=== PATIENT | female | born 1955 | race Caucasian/White ===

== ENCOUNTER → 2016-08-18 | Outpatient (CLI) | payer OTHER ==
--- NOTE | 2016-08-18 15:38 | MA ---
Diagnostic Digital Mammogram Right Breast With iCAD Analysis Reason for examination: Evaluate possible asymmetry versus overlap of normal glandular elements noted in the upper inner right breast on the screening study July 29, 2016. Technique: Oblique and craniocaudal spot compression views are obtained. Also, a true lateral is perf ormed. The examination is processed by the iCAD computer-aided detection system. Comparison is made to older studies dating back to August 2008. Findings: The abnormality does not persist on diagnostic evaluation and it was probably related to dorantes perimposition of normal glandular elements on the screening study. The appearance of the right breas t on diagnostic assessment is unchanged compared to the older studies. Impression: Negative diagnostic mammography. BI-RADS: 1. Recommendation: Resume routine mammographic screening in one year as long as physical examination is negative. A verbal report was given to the patient. [facility] with send a result letter.
== END ==
LOC: FIMAGING 14:54
PROVIDERS: ATTEND Obstetrics & Gynecology
DX: Z12.39 Encounter for other screening for malignant neoplasm of breast (principal); R92.2 Inconclusive mammogram
CPT/HCPCS: G0206

== ENCOUNTER → 2016-08-30 | Outpatient (CLI) | payer OTHER ==
--- NOTE | 2016-08-30 13:02 | NM ---
Gastric Emptying Study Clinical History: 60-year-old female with early satiety, belching, and a negative EGD and negative c olonoscopy. ICD 10 Diagnostic Code: R68.81. Comparison Study: None available. Technique: 2.4 mCi of technetium 99m sulfur colloid was mixed with 1 egg, and the egg and toast an d orange juice were ingested. Dynamic anterior imaging was performed of the abdomen, and % retention rates were calculated. Findings: Time (Minutes): Retention % 60 70 120 7 180 2 240 3 The T-1/2 time is 77 minutes (normal is less than 90 minutes). *Note: Assessment of Severity of Gastric Retention at 4 hours (Based upon consensus data from a joint report of the [place] [employer], and the [employer] ne): MILD: 11-15% MODERATE: 16-35%. SEVERE: >35%. Impression: Normal gastric emptying time.
== END ==
LOC: FIMAGING 08:12
PROVIDERS: ATTEND Internal Medicine Gastroenterology
DX: R68.81 Early satiety (principal)
CPT/HCPCS: A9541

== ENCOUNTER → 2018-07-10 | Outpatient (CLI) | payer OTHER | LOC: FIMAGING 08:51 | PROVIDERS: ATTEND Obstetrics & Gynecology | DX: Z12.31 Encounter for screening mammogram for malignant neoplasm of breast (principal); Z80.3 Family history of malignant neoplasm of breast ==